=== PATIENT | female | born 1995 | race Caucasian/White ===

== ENCOUNTER 2018-02-14 11:06 | Emergency (ER) | payer SELFPAY ==
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
== END 2018-02-14 11:48 | disposition home or self-care (01) ==
LOC: ER 11:06
DX: M54.2 Cervicalgia (principal); M79.18 Myalgia, other site; E03.9 Hypothyroidism, unspecified; F31.9 Bipolar disorder, unspecified; F98.8 Other specified behavioral and emotional disorders with onset usually occurring in childhood and adolescence; F17.210 Nicotine dependence, cigarettes, uncomplicated
CPT/HCPCS: 99282

== ENCOUNTER 2018-03-06 23:12 | Emergency (ER) | payer SELFPAY ==
[2018-03-06] MEDS ORDERED: KETOROLAC 30 MG/ML INJ ONE (23:56)
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
[2018-03-07 01:46] LABS: Urine Blood NEGATIVE (NEG); Urine Glucose NEGATIVE (NEG); Urine Protein NEGATIVE (NEG); Urine Specific Gravity >1.030 (1.005-1.030); Urine pH 5.5 (5.0-7.0)
== END 2018-03-07 00:09 | disposition home or self-care (01) ==
LOC: ER 23:12
DX: M54.2 Cervicalgia (principal); Z72.0 Tobacco use
CPT/HCPCS: 81003; 81025; 96372; 99283